=== PATIENT | male | born 1950 | race African-American/Black ===

== ENCOUNTER 2016-08-19 02:04 | Emergency (ER) | payer OTHER ==
[~2016-08-19 02:04] MED LIST: DOXY100T PO; SULF-154 PO; Z.0.NO CURRENT MEDS
--- NOTE | 2016-08-19 04:34 | RADRPT ---
EXAM DATE/TIME: 08/19/2016 04:11 This report includes an Addendum and supersedes previous reports for this exam. [facility] COMPARISON: No previous studies available for comparison. INDICATIONS : Pt c/o chest pain and shortness of breath from vomiting. MEDICAL HISTORY : None. SURGICAL HISTORY : None. ENCOUNTER: Initial ACUITY: 1 day PAIN SCORE: 7/10 LOCATION: Bilateral chest FINDINGS: This is a technically inadequate study with complete burnout of the lung ontiveros and the upper chest. A frontal view should be repeated. No gross abnormality seen on the lateral projection. Moderate t ortuosity descending thoracic aorta. Both hemidiaphragms well delineated. CONCLUSION: No gross abnormality seen, however, this is a technically inadequate study with nonvisualization and burnout of the upper lung ontiveros. The study should be repeated an addendum to the report can be renroger ambrocio. Celestino Canela MD on August 19, 2016 at 4:31 Board Certified Radiologist. This report was verified electronically. ADDENDUM: A repeat frontal view of the chest was performed and demonstrates the lungs to be hyperaerated, but c lear. No focal opacities or infiltrates seen. No evidence of pneumothorax. Celestino Canela MD on August 19, 2016 at 5:36 Board Certified Radiologist. This report was verified electronically.
--- NOTE | 2016-08-19 04:39 | RADRPT ---
EXAM DATE/TIME: 08/19/2016 04:12 [facility] COMPARISON: No previous studies available for comparison. INDICATIONS : Pt c/o sore throat from vomiting. MEDICAL HISTORY : None. SURGICAL HISTORY : None. ENCOUNTER: Initial ACUITY: 1 day PAIN SCORE: 6/10 LOCATION: Bilateral Neck FINDINGS: Two-view examination of the soft tissues of the neck were performed. The frontal views are technical ly inadequate with poor delineation of the soft tissues. On the lateral view, prevertebral soft tiss ues are normal in thickness. There is prominent anterior paravertebral ossification at C5-6. The ep iglottis is normal in thickness. Bilateral mandibular metallic plates. CONCLUSION: No concerning findings on the lateral view. Technically inadequate frontal view for soft tissue. Celestino Canela MD on August 19, 2016 at 4:33 Board Certified Radiologist. This report was verified electronically.
--- NOTE | 2016-08-19 05:11 | PD ---
HPI Chief Complaint: ENT Complaint Time Seen by Provider: 03:54 Travel History International Travel<30 days: No Contact w/Intl Traveler<30days: No History of Present Illness HPI 66-year-old male feels like he has something stuck in his throat. He states it is felt that way for a couple of days. He denies any chest pain, jaw pain, shortness of breath or other concurrent complaints. Nursing staff stated that they saw something in the back of his throat that was possibly meat or something on initial inspection. Patient denies difficulty swallowing liquids. Quality is stuck-like feeling. Location is throat. Duration is couple of days. PFSH Past Medical History Hypertension: Yes Past Surgical History Surgical History: No Previous Surgery Social History Alcohol Use: No Tobacco Use: Yes Substance Use: Yes (crack cocaine use) Allergies-Medications (Allergen,Severity, Reaction): Coded Allergies: No Known Allergies (Verified , 03/04/11) Reported Meds & Prescriptions Reported Meds & Active Scripts Active Zantac (Ranitidine HCl) 150 Mg Tab 150 Mg PO BID 7 Days Septra Ds (Trimethoprim/Sulfamethoxazole) Tab 1 Tab PO BID Doxycycline Hyclate 100 mg (Doxycycline Hyclate) 100 Mg Tab 100 Mg PO BID Reported No Current Meds (Miscellaneous Medication) Misc Review of Systems Except as stated in HPI: all other systems reviewed are Neg Physical Exam Narrative GENERAL: Well-nourished, well-developed patient. Well-appearing SKIN: Warm and dry. HEAD: Normocephalic and atraumatic. EYES: No injection or drainage. ENT: No nasal drainage noted. No foreign body noted, posterior oropharynx without exudate or edema or peritonsillar abscess, uvula midline NECK: Supple, trachea midline. No meningeal signs CARDIOVASCULAR: Regular rate and rhythm RESPIRATORY: Breath sounds equal bilaterally. No accessory muscle use. GASTROINTESTINAL: Abdomen soft, non-tender, nondistended. EXTREMITIES: No edema. NEUROLOGICAL: Awake and alert. Motor and sensory grossly within normal limits. Normal speech. Data Data Orders Soft Tissue Neck (08/19/16 ) Chest, Pa & Lat (08/19/16 ) Chest, Single Ap (08/19/16 ) [facility] Medical Decision Making Medical Screen Exam Complete: Yes Emergency Medical Condition: Yes Medical Record Reviewed: Yes (past history confirmed) Interpretation(s) Last 24 hours Impressions Soft Tissue Neck X-Ray 08/19/16 0000 Signed Impressions: Service Date/Time: Friday, August 19, 2016 04:12 - CONCLUSION: No concerning findings on the lateral view. Technically inadequate frontal view for soft tissue. Celestino Canela MD Chest X-Ray 08/19/16 0000 Signed Impressions: Service Date/Time: Friday, August 19, 2016 04:11 - CONCLUSION: No gross abnormality seen, however, this is a technically inadequate study with nonvisualization and burnout of the upper lung ontiveros. The study should be repeated an addendum to the report can be rendered. Celestino Canela MD ADDENDUM: A repeat frontal view of the chest was performed and demonstrates the lungs to be hyperaerated, but clear. No focal opacities or infiltrates seen. No evidence of pneumothorax. Celestino Canela MD Differential Diagnosis Foreign body, upper respiratory infection, dysphasia... Narrative Course Will check soft tissue x-ray and chest x-ray and reevaluate. Patient has no difficulty swallowing liquids at bedside xrays no acute, Patient denies any new complaints and states that they are feeling better. He is able to drink liquids without difficulty, he is controlling his secretions, he is stable to follow-up outpatient and understands the importance of additional testing to give root of cause, Patient happy with care, all questions answered. Patient knows that follow up is incumbent on them and to return to the emergency room immediately if new or worsening symptoms develop. Patient given strict return precautions, vitals reviewed and are normal Diagnosis Primary Impression: Difficulty swallowing solids Referrals: [employer] call for appointment Patient Instructions: General Instructions Additional Instructions: return as needed, set up a primary, zantac as needed Med/Other Pt SpecificInfo: Prescription(s) given Scripts Ranitidine (Zantac)150 Mg [id number] Mg PO BID 7 Days Ref 0 Prov:Milli Lacey MD 08/19/16 Disposition: 01 DISCHARGE HOME Condition: Stable Milli Lacey MD Aug 19, 2016 05:11
[2016-08-19] MEDS ORDERED: ZANT150T2 PO (06:19)
== END 2016-08-19 07:16 | disposition home or self-care (01) ==
LOC: NED 02:04 → NEPC 07:16
DX: R13.19 Other dysphagia (principal); I10 Essential (primary) hypertension; Z72.0 Tobacco use
CPT/HCPCS: 70360; 71010; 71020; 99283